=== PATIENT | male | born 1950 | race African-American/Black ===

== ENCOUNTER 2019-07-23 17:18 | Emergency (ER) | payer MEDICARE, MEDICAID ==
--- NOTE | 2019-07-23 18:27 | RAD ---
XR Abdomen 1 View/KUB History: G-tube placement Comparison: None. Findings: There is contrast instilled through an enteric tube in the stomach with contrast extending into the proximal small bowel. Impression: Satisfactory location of the gastrostomy tube.
== END 2019-07-23 19:28 ==
LOC: ERS 17:18
DX: Z43.1 Encounter for attention to gastrostomy (principal); F03.90 Unspecified dementia, unspecified severity, without behavioral disturbance, psychotic disturbance, mood disturbance, and anxiety; I10 Essential (primary) hypertension; F20.9 Schizophrenia, unspecified; Z87.01 Personal history of pneumonia (recurrent)
CPT/HCPCS: 43753; 74018; B4087

== ENCOUNTER 2019-08-09 02:28 | Inpatient (IN) | payer MEDICARE, MEDICAID ==
--- NOTE | 2019-08-09 03:47 | PDOC.FPRHP ---
- History of Present Illness Chief Complaint: fever and congestion History of Present Illness: 69-year-old male with a past medical history of hypertension, dementia, salivary secretion disturbance, pneumonia in April 2019, and retirement resident, presenting to the [place] emergency department for low oxygen saturation and fever found at the retirement of 101F. The patient wakes up when I walk into the room but does not respond or answer any questions. This is the patient's baseline mentation per next of kin. The patient was taken to [place] emergency Department had a oxygen saturation of 89% was started on 6 L facemask of oxygen, which then increased to 94%. Patients initial heart rate was 102 respiratory rate 24. Patient was transferred to [place] emergency Department. Where he was admitted for pneumonia.Patients heart rate is now 92 respiratory rate 17 is setting 100% on 4 L per facemask and his blood pressure is 137/79. Patient was given 500 mg of azithromycin, 1 g of Rocephin, and 2750 mL of normal saline. EKG sinus tach at 125 bpm. cxr: no acute cardiopulmonary findings. chest xray consistent with reading in April 2019 with bilateral perihilar interstitial prominent markings, likely bronchitis vs vascular congestion. - Allergies/Adverse Reactions Allergies Allergy/AdvReac Type Severity Reaction Status Date / Time No Known Drug Allergies Allergy Verified 08/09/19 05:59 - Home Medications Medication Instructions Recorded Confirmed Type Acetaminophen [Tylenol Elixir] 650 mg PO Q6HR PRN 08/09/19 08/09/19 History Loratadine [Loratadine Allergy] 10 mg PO DAILY PRN 08/09/19 08/09/19 History Magnesium Hydroxide [Milk of 60 ml PO DAILY PRN 08/09/19 08/09/19 History Magnesia] Multivitamin With Minerals 15 ml PO DAILY 08/09/19 08/09/19 History [Biosupp Liquid] guaiFENesin ER [Mucinex] 600 mg PO BID PRN 08/09/19 08/09/19 History guaiFENesin [Guaifenesin] 200 mg PO Q6HR 08/09/19 08/09/19 History - History PMHx: Dementia, HTN not on any antihypertensives, malignant constipation syndrome, disturbance of salivary secretions, Schizophrenia PSHx: unknown FHx: unknown Social: Lives at [facility]. Hx of etoh and cannabis abuse. next of kin Chelsy Escobar, medical decision maker. Confirmed DNR-DNI in hospital @ 0600 on 08/09 via phone conversation. - Review of Systems ROS unobtainable: due to mental status General: reports: fever/chills (per NH) Respiratory: reports: congestion (per NH) - Vital signs BP: 137/79 HR: 92 RR: 17 Tmax: 99.6 Pox: 100% on 4L facemask Wt: 79 kg - Physical Exam Constitutional: NAD -Constitutional: arousable, somnolent. Does not verbalize concerns or respond to questions verbally. Opens eyes spontaneously, moves extremities spontaneously. HEENT: normocephalic and atraumatic, conjunctiva clear, no scleral icterus, oropharynx clear -HEENT: pupils B pinpoint, sluggish reactivity. Dry mucus membranes. poor dentition Neck: supple, no LAD, no JVD Heart: RRR, normal S1/S2, no murmurs/rubs/gallops, pulses present, no edema -Lungs: Loud rhonchi, upper airway noise auscultated throughout all lung dunn. Abdomen: soft, non-tender, bowel sounds present, no masses/distention, no hernias -Abdomen: Peg tube in place Musculoskeletal: normal structure -Musculoskeletal: muscle mass decreased Skin: no rash/lesions, good turgor, capillary refill <2 seconds, no jaundice Heme/Lymphatic: no unusual bruising or bleeding, no purpura, no petechia FMR H&P: Results - Labs Lab results: Laboratory Tests 08/08/19 08/08/19 08/08/19 19:55 19:55 19:55 WBC 10.7 Hgb 12.8 L Hct 39.9 L MCV 83.1 Sodium 140 Potassium 3.6 Chloride 105 Carbon Dioxide 24 Anion Gap 15 BUN 19 Creatinine 1.05 Estimated GFR (MDRD) 85 Glucose 152 H Lactic Acid 2.0 AST 36 H ALT 55 Urine Blood Urine Nitrite Urine Bilirubin Urine Urobilinogen Ur Leukocyte Esterase Urine RBC Urine WBC Ur Squamous Epith Cells Urine Bacteria 08/08/19 20:24 WBC Hgb Hct MCV Sodium Potassium Chloride Carbon Dioxide Anion Gap BUN Creatinine Estimated GFR (MDRD) Glucose Lactic Acid AST ALT Urine Blood Trace A Urine Nitrite Positive A Urine Bilirubin Negative Urine Urobilinogen 2.0 A Ur Leukocyte Esterase Trace H Urine RBC 7-10 A Urine WBC 4-6 A Ur Squamous Epith Cells 0-3 Urine Bacteria 3+ A - EKG Interpretation EKG: sinus tach at 125 bpm - Radiology Interpretation Chest x-ray Status: image reviewed by me (no acute cardiopulmonary findings), report reviewed by me FMR H&P: A/P - Problem List (1) UTI (urinary tract infection) Current Visit: Yes Status: Acute (2) HTN (hypertension) Current Visit: Yes Status: Chronic Code(s): I10 - ESSENTIAL (PRIMARY) HYPERTENSION (3) Dementia Current Visit: Yes Status: Chronic Code(s): F03.90 - UNSPECIFIED DEMENTIA WITHOUT BEHAVIORAL DISTURBANCE (4) Constipation Current Visit: Yes Status: Chronic Code(s): K59.00 - CONSTIPATION, UNSPECIFIED (5) Schizophrenia Current Visit: Yes Status: Chronic Code(s): F20.9 - SCHIZOPHRENIA, UNSPECIFIED (6) History of CVA (cerebrovascular accident) Current Visit: Yes Status: Chronic Code(s): Z86.73 - PRSNL HX OF TIA (TIA), AND CEREB INFRC W/O RESID DEFICITS (7) Normocytic anemia Current Visit: Yes Status: Acute Code(s): D64.9 - ANEMIA, UNSPECIFIED - Plan 69 y/o male [facility] for treatment of sepsis 2/2 UTI. 1. Sepsis 2/2 UTI - UA: leuk est +, nitrite +, Bact 3+ - HR originally 125, 24 RR, O2 sat 89%, temp 101. Improved to HR 92, 17 RR, and 99% on 4 L facemask. - Lactic acid 2 - Given rocephin, azithromycin and 2750 mL NS in ED, for presumed pneumonia. - Continue LR @ 120 mL/hr - Levaquin 750 mg daily 2. UTI - UA: leuk est +, nitrite +, Bact 3+ - Changing antibiotic to Levaquin 750 mg daily - Antibiotic change because of sepsis and elderly male with increased probability of prostate penetration. 3. Acute Hypoxic Respiratory Failure, improved - O2 saturation improved with facemask O2 - CXR: no acute cardiopulmonary process - No evidence of pneumonia, no antibiotic therapy indicated at this time - Likely 2/2 bronchitis or increased respiratory secretions - RT to suction respiratory secretions - Consider scopolamine patch if symptoms do not alleviate - flu a/b negative 4. Hx of HTN - hold any antihypertension medications as pt is septic. - Pt has not beein on antihypertensives at [place] 5. Hx of Malignant Constipation Syndrome - Continue home Milk of Mag 6. Hx of Dementia - [place] resident at [facility] and rehab. 7. Peg tube in place - continue Jevity 1.5 - Dietary consult 8. Normocytic Anemia - Most likely anemia of chronic disease - Continue multivitamin Code status: DNR-DNI, Per Next of Kin: Chelsy Escobar Diet: tube feedings per [place] feds DVT ppx: Lovenox Dispo: Stable, admitted to in-pt tele for treatment and eval of sepsis 2/2 UTI. Hx stay anticipated >2 midnight FMR H&P: Upper Level - Pertinent history 69 y/o M PMHx Dementia and prior CVA presents as transfer from [place] ED. He was found at the [place] to be hypoxic and febrile so he was sent to the ED. At the ED he was found to have PNA and UTI and given azithromycin 500mg, rocephin 1 g, and 2L NS. He was found at [place] ED to have tmax 100.7, HR in 100s and RR in 20s. He was requiring O2 by ND. Upon my examination, pt able to be aroused, but non-communicative. Resting comfortably with facemask on chin. History obtained from [place] and ED records. - Pertinent findings BP: 137/79, Pulse: 94, Resp: 20, O2 sat: 100 on 4L Oxygen, Temp 100.3 PE: Gen - asleep, able to be aroused, NAD CV - RRR, no murmurs Lungs - significant upper airway sounds radiating in all lung dunn, worse on the L Abd - soft, NTTP Labs: WBC 10.7, Cr 1.05, Lactic Acid 2.0, UA with 3+bact, +nitrite, tr LE, tr blood CXR: no acute cardiopulmonary process - Plan Date/Time: 08/09/19 [id number] IZuleyka MD, PGY-3, have evaluated this patient and agree with findings/ plan as outlined by consultant internship resident. Pertinent changes/additions are listed here. 1. Sepsis 2/2 UTI Pt presents to the ED with a UA consistent with UTI as well as febrile, tachycardic, tachypneic. s/p rocephin, azithromycin, 2L NS. -BCx -UCx -Treat with rocephin, adjust pending urine cx results -Procal -LR @ 120 2. Hypoxia Pt hypoxic to 89% in [place] and started on O2. He has been 98-100% on 4L O2 at this ED. -Will attempt to wean O2 -Will have RT suction pt to see if this improves secretions -May have aspirated from increased secretions, but no CXR evidence of consolidation. Pt with PEG tube in place 3. Dementia Pt non-communicative with me. Will find out from NH what his baseline is. -Fall precautions -Continue PEG tube feeds VTE ppx: Lovenox Dispo: Admit to Tele LOS: Likely greater than 2 days Code status: DNR based on OOH DNR, attempting to contact next of kin/MPOA to discuss wishes in the hospital
[2019-08-09] MEDS ORDERED: Acetaminophen 325 MG TAB PO PRN (05:22)
[2019-08-09] MEDS ORDERED: Ondansetron PF 4 MG/2 ML Vial IVP PRN (05:22)
[2019-08-09 05:25] VITALS: BMI 26.5
[2019-08-09] MEDS: Lactated Ringer's 1,000 ML IV SCH ×2 (06:13→18:05)
[2019-08-09] MEDS ORDERED: Loratadine 10 MG TAB PO PRN (06:20)
[2019-08-09] MEDS ORDERED: Acetaminophen 650 MG/20.3 ML UDCUP PO PRN (06:20)
[2019-08-09] MEDS ORDERED: Milk Of Magnesia 30 ML UDCUP PO PRN (06:20)
[2019-08-09] MEDS: Multivitamin W/ Minerals 1 TAB PO SCH (10:06)
[2019-08-09] MEDS: Enoxaparin Sodium 40 MG/0.4 ML SYRINGE SC SCH (10:06)
[2019-08-09] MEDS ORDERED: Scopolamine 1.5 mg/72 hour Patch TD SCH (12:30)
[2019-08-09] MEDS: Diabetic Tussin 200 MG/10 ML UDCUP PO SCH ×2 (12:51→18:05)
--- NOTE | 2019-08-09 16:22 | HP ---
Please see the history and physical done by the residents, for which I agree. The patient is seen, evaluated, discussed, and examined by bedside with the residents. Please see the history and physical done by Dr. Darling Johnson. HISTORY OF PRESENT ILLNESS: A 69-year-old snf patient, who apparently has had severe dementia that he is not communicative and is fed through a PEG tube, who comes in with fever up to 101 and maybe some increased coughing and secretions in the chest. Initially, he was told he has pneumonia, but the x-ray looked pretty normal, and a urinalysis looked very dirty, likely UTIs, it is unclear if it is UTI or pneumonia or possibly both, so he is brought in. Initially, he was on Rocephin and Zithromax, now has been switched to Levaquin. ALLERGIES, HOME MEDICATIONS, PAST MEDICAL HISTORY, PAST SURGICAL HISTORY, FAMILY HISTORY, SOCIAL HISTORY, REVIEW OF SYSTEMS: All per Dr. Johnson's history and physical, for which I reviewed and agree with. PHYSICAL EXAMINATION: VITAL SIGNS: Afebrile. Vital signs are stable. Oxygen level is fine. EYES: Opens his eyes, but again is noncommunicative, does not answer any questions. We assume this is baseline, although there is no family around to tell us. ENT: Conjunctivae maybe is a little bit irritated, but no discharge. Looks like moist mucosa. CHEST: Coarse throughout. A little bit of wheezing with upper airway noises. HEART: Regular rate and rhythm. ABDOMEN: Benign. NEURO: Significant for just what seems to be some contractures. Hard to straighten his legs. IMAGING STUDIES: Chest x-ray looks pretty normal. LABORATORY DATA: Blood workup significant for normal white count of 10.7, hemoglobin 12.8, sugar a little bit high at 152. Urinalysis had only 4-6 white blood cells and 7-10 red blood cells. ASSESSMENT: 1. Febrile illness, unclear if this is urinary tract infection related or respiratory. 2. Severe dementia, unchanged. 3. Hypertension. 4. Schizophrenia history. 5. Normocytic anemia. 6. Elevated blood sugar. PLAN: Plan is to continue tube feeds, continue on Levaquin. His urine culture and blood cultures pending. We will watch his oxygen level and repeat a chest x-ray in the morning and just supportive care in the interim. The patient is a do not resuscitate. Job ID: [id number]
[2019-08-09] MEDS ORDERED: cefTRIAXone\\ROCEPHIN 1 GM in Sodium Chloride 0.9% 100 ML IVPB SCH (21:00)
[2019-08-09] MEDS: Terazosin HCl 1 MG CAP PO SCH (21:21)
[2019-08-10] MEDS: Diabetic Tussin 200 MG/10 ML UDCUP PO SCH ×4 (00:21→18:11)
--- NOTE | 2019-08-10 05:29 | PDOC.FM ---
- Subjective Subjective: No acute events overnight per nursing. Resting comfortably. A/O x0 at baseline. VSS. - Objective MAR Reviewed: Yes Vital Signs & Weight: Vital Signs (12 hours) Temp Pulse Resp BP Pulse Ox 08/10/19 04:00 98.5 F 65 18 116/56 L 97 08/09/19 21:00 99.0 F 61 16 105/57 L 100 Weight Weight 79.243 kg I&O: 08/08/19 08/09/19 08/10/19 06:59 06:59 06:59 Intake Total 30 870 Balance 30 870 Result Diagrams: 08/10/19 06:39 08/10/19 06:39 EKG Reviewed by me: Yes (NSR, no acute tele events) Phys Exam - Physical Examination Constitutional: NAD (resting comfortably, no increased WOB) HEENT: moist MMs increased salivary secretions Neck: supple Respiratory: no wheezing course BS BL, much upper airway noise as well Cardiovascular: RRR, no significant murmur, no rub Gastrointestinal: soft, non-tender, no distention, positive bowel sounds Musculoskeletal: no edema, pulses present Deviation from normal: A/O x0 Dx/Plan (1) Normocytic anemia Code(s): D64.9 - ANEMIA, UNSPECIFIED Status: Acute (2) UTI (urinary tract infection) Status: Acute (3) Dementia Code(s): F03.90 - UNSPECIFIED DEMENTIA WITHOUT BEHAVIORAL DISTURBANCE Status: Chronic (4) HTN (hypertension) Code(s): I10 - ESSENTIAL (PRIMARY) HYPERTENSION Status: Chronic - Plan Plan: 69 y/o male with h/o dementia A/O x0 admitted to tele inpt for treatment of sepsis 2/2 UTI. #Sepsis 2/2 UTI, stable - UA: leuk est +, nitrite +, Bact 3+ - HR originally 125, 24 RR, O2 sat 89%, temp 101. VSS on 3L NC satting >95%. - Lactic acid 2 - Given rocephin, azithromycin and 2750 mL NS in ED. Transitioned to Levaquin daily - Will await Cx and transition abx as appropriate - BCx NGTD #UTI - UA: leuk est +, nitrite +, Bact 3+. Awaiting UCx results - Levaquin 750 mg daily x2 - will transition to PO - Terazosin for urinary retention #Acute Hypoxic Respiratory Failure, improving - O2 saturation improved with facemask O2. Will wean O2. - CXR: no acute cardiopulmonary process - Likely 2/2 bronchitis or increased respiratory secretions - RT to suction respiratory secretions. Scopolamine patch. - flu a/b negative - Procal 0.34 -> 0.44. WBC 5.5. #Hx of HTN - BP stable, no home meds #Hx of Dementia - [place] resident at [facility] and rehab. #Peg tube dependent feeds - continue Jevity 1.5 - Dietary consult #Normocytic Anemia - likely anemia of chronic disease - Continue multivitamin Code status: DNR-DNI, Per Next of Kin: Chelsy Teixeirabran Diet: tube feedings per [place] feds IVF: SL DVT ppx: Lovenox Dispo: Stable, admitted to in-pt tele for treatment and eval of sepsis 2/2 UTI. VSS, clinical improved. Transfer to medical. Awaiting Cx results.
[2019-08-10] MEDS: Lactated Ringer's 1,000 ML IV SCH (05:53)
[2019-08-10 06:54] LABS: #Eosinphils 0.4 thou/uL (0.0-0.7); #Lymphocytes 2.1 thou/uL (1.20-3.40); #Monocytes 0.4 thou/uL (0.11-0.59); #Neutrophils 2.6 thou/uL (1.40-6.50); %Basophils 0.4 % (0.0-1.0); %Eosinophils 7.4 % (0.0-10.0); %Lymphocytes 37.3 % (21.0-51.0); %Neutrophils 46.9 % (42.0-75.0); Hemoglobin 10.6 g/dL (14.0-18.0); Mean Corpuscular Hemoglobin 27.1 pg (27.0-31.0); Mean Corpuscular Volume 87.4 fL (78.0-98.0); Mean Platelet Volume 10.4 fL (7.4-10.4); Platelet Count 138 thou/uL (130-400); RBC Distribution Width 14.5 % (11.5-14.5); White Blood Cell (WBC) Count 5.5 thou/uL (4.8-10.8)
[2019-08-10 07:16] LABS: Anion Gap 8 mmol/L (10-20); BUN (Urea Nitrogen) 14 mg/dL (8.4-25.7); Calc. Creatinine Clearance 99 mL/min (70-130); Calcium 9.1 mg/dL (7.8-10.44); Carbon Dioxide 28 mmol/L (23-31); Chloride 107 mmol/L (98-107); Estimated GFR-MDRD Greater than 90; Glucose 118 mg/dL (80-115); Potassium 4.2 mmol/L (3.5-5.1); Sodium 139 mmol/L (136-145)
[2019-08-10] MEDS: Multivitamin W/ Minerals 1 TAB PO SCH (08:20)
[2019-08-10] MEDS: Enoxaparin Sodium 40 MG/0.4 ML SYRINGE SC SCH (08:20)
[2019-08-10] MEDS ORDERED: Tamsulosin HCl 0.4 MG CAP PO SCH (09:00)
--- NOTE | 2019-08-10 12:33 | PRG ---
DATE OF SERVICE: 08/10/2019 Mr. Escobar is an unfortunate 69-year-old black male patient, who was found at an outlying ER to have a low oxygen saturation and fever at the long-term 101 degrees. Chest x-ray subsequently showed possible interstitial pneumonia and he was transferred to our institution for higher level of care. He is currently on antibiotics and O2 with improvement in his O2 saturation. He also has a history of dementia, possibly on the basis of Alzheimer's and vascular dementia. He is therefore extremely difficult to obtain any adequate history from. We will continue with our current management. Job ID: [id number]
[2019-08-10] MEDS: Terazosin HCl 1 MG CAP PO SCH (21:58)
[2019-08-11] MEDS: Diabetic Tussin 200 MG/10 ML UDCUP PO SCH ×2 (00:13→05:48)
--- NOTE | 2019-08-11 07:25 | PDOC.FM ---
- Subjective Subjective: No acute events overnight. Baseline mentation. No increased WOB. Satting well on RA. Stable and ready for transfer back to long-term care facility. - Objective MAR Reviewed: Yes Vital Signs & Weight: Vital Signs (12 hours) Temp Pulse Resp BP Pulse Ox 08/11/19 04:00 99.7 F H 71 20 137/86 100 08/10/19 20:00 98.2 F 67 20 112/61 100 Weight Admit Weight 79.243 kg Weight 79.243 kg I&O: 08/10/19 08/11/19 08/12/19 06:59 06:59 06:59 Intake Total 870 180 Balance 870 180 Result Diagrams: 08/10/19 06:39 08/10/19 06:39 Phys Exam - Physical Examination Constitutional: NAD (no increased WOB, A/O x0 at baseline, opens eyes to verbal stimulus) HEENT: moist MMs (copious secretions) Neck: supple Respiratory: no wheezing course BS BL bases, no crackles, improved from previous exam Cardiovascular: RRR, no significant murmur, no rub Gastrointestinal: soft, no distention, positive bowel sounds Musculoskeletal: no edema Deviation from normal: A/O x 0, at baseline Dx/Plan (1) Normocytic anemia Code(s): D64.9 - ANEMIA, UNSPECIFIED Status: Acute (2) UTI (urinary tract infection) Status: Acute (3) Dementia Code(s): F03.90 - UNSPECIFIED DEMENTIA WITHOUT BEHAVIORAL DISTURBANCE Status: Chronic (4) HTN (hypertension) Code(s): I10 - ESSENTIAL (PRIMARY) HYPERTENSION Status: Chronic - Plan Plan: 69 y/o male with h/o dementia A/O x0 admitted for treatment of sepsis 2/2 UTI. #Sepsis 2/2 UTI, stable - UA: leuk est +, nitrite +, Bact 3+ - HR originally 125, 24 RR, O2 sat 89%, temp 101. VSS now on RA satting 100% - Given rocephin, azithromycin and 2750 mL NS in ED. Transitioned to Levaquin daily - UCx E. Coli, susceptibilities pending. Will cont levaquin 750mg daily for total of 7 days. BCx NGTD - transferred to medical from [facility] yesterday, no acute events overnight - Pt stable and appears at baseline, ready for transfer back to [facility] #UTI - UA: leuk est +, nitrite +, Bact 3+. Awaiting UCx results - Levaquin 750 mg daily x3 - will transition to PO - Terazosin for urinary retention #Acute Hypoxic Respiratory Failure, resolved - weaned to room air, satting 100% - CXR: no acute cardiopulmonary process - Likely 2/2 bronchitis or increased respiratory secretions - RT to suction respiratory secretions. Scopolamine patch. - flu a/b negative - Procal 0.34 -> 0.44. WBC 5.5. #Hx of HTN - BP stable, no home meds #Hx of Dementia - [place] resident at [facility] and rehab. #Peg tube dependent feeds - continue Jevity 1.5 - Dietary consult #Normocytic Anemia - likely anemia of chronic disease - Continue multivitamin Code status: DNR-DNI, Per Next of Kin: Chelsy Teixeirabran Diet: tube feedings per [place] feds IVF: SL DVT ppx: Lovenox Dispo: Stable, admitted for treatment and eval of sepsis 2/2 UTI. VSS, clinical improved. UCx E. coli, susceptibilities pending. Medically stable and ready for discharge back to [facility].
[2019-08-11] MEDS: Multivitamin W/ Minerals 1 TAB PO SCH (08:01)
[2019-08-11] MEDS: Enoxaparin Sodium 40 MG/0.4 ML SYRINGE SC SCH (08:01)
--- NOTE | 2019-08-11 10:59 | PRG ---
DATE OF SERVICE: 08/11/2019 Mr. Escobar is receiving good treatment for his urinary tract infection and sepsis. His hypoxia has resolved since the treatment of his sepsis. He will be discharged back to the long-term facility today. Job ID: [id number]
[2019-08-11 11:48] VITALS: BP 108/71; TEMP 98.2
--- NOTE | 2019-08-11 19:43 | DIS ---
DATE OF ADMISSION: 08/09/2019 DATE OF DISCHARGE: 08/11/2019 RESIDENT: Jerman Rodriguez MD ADMITTING ATTENDING: Unruly Granger MD. DISCHARGE ATTENDING: Miguel Colvin MD CONSULTS: None. PROCEDURES: Chest x-ray on 08/08/2019, demonstrating no acute cardiopulmonary process. PRIMARY DIAGNOSES: 1. Sepsis secondary to urinary tract infection. 2. Urinary tract infection. 3. Acute hypoxic respiratory failure. SECONDARY DIAGNOSES: 1. Hypertension. 2. Dementia. 3. PEG tube dependent feeds. 4. Normocytic normochromic anemia. DISCHARGE MEDICATIONS: 1. Tylenol 650 mg p.o. q.6 hours p.r.n. 2. Mucinex 600 mg p.o. b.i.d. p.r.n. 3. Milk of magnesia 60 mL p.o. daily p.r.n. 4. Loratadine 10 mg p.o. daily p.r.n. 5. Guaifenesin 200 mg p.o. q.6 hours. 6. Multivitamin 15 mL p.o. daily. 7. Levaquin 750 mg per tube at 0600 daily x5 days. 8. Scopolamine patch 1.5 mg transdermally q.3 days p.r.n. secretions. DISCONTINUED MEDICATIONS: None. HISTORY OF PRESENT ILLNESS AND HOSPITAL COURSE: The patient is a 69-year-old male with past medical history of hypertension, dementia, salivary secretion disturbance, and intermediate resident, who was A and O x0 at baseline, presented to the outside emergency department for low oxygen saturation with fever found at the intermediate to be 101 Fahrenheit. The patient wakes up when I walked into the room, but does not respond to any questions, this is baseline per next of kin. In the [facility], he had O2 saturation of 89%, was started on 6 L face mask oxygen, was increased the patient's O2 sats to 94%. The patient initially had a respiratory rate of 24 and heart rate of 102. The patient was then transferred to [facility] Emergency Department for further evaluation and management and the Family Medicine team was called for admission. In the ED, his heart rate decreased to 92, respiratory rate 17, he was saturating 100% on 4 L. His blood pressure was stable, 137/79. He was given 500 mg of azithromycin, 1 g of Rocephin, 3 L normal saline bolus. EKG showed sinus tachycardia, 125. Chest x-ray showed no acute cardiopulmonary findings and was similar to a previous chest x-ray in April of 2019. The patient was admitted to telemetry for sepsis secondary to UTI. Initial labs were significant for a white blood cell count of 10.7, hemoglobin 12.8, platelets 138. Electrolytes were within normal limits. GFR was 85. The patient had a lactic acid of 2. UA was dirty with 3+ bacteria, 4 to 6 wbc's and trace leukocyte esterase. Urine culture was obtained. The patient was continued on Levaquin daily. He was started on maintenance IV fluids. Overnight, the patient did very well and continued to improve clinically. He continued to have increased secretions and bilateral coarse breath sounds and thus was given a scopolamine patch to aid with secretions as well as started on terazosin for urinary retention. The patient continued to urinate well. His tube feeds were continued as per intermediate. IV fluids were then discontinued and the patient was transferred to the medical floor. Throughout the day and overnight, the patient continued to improve clinically. His O2 requirement was continued to wean down to 1 L by the end of the first day of admission and overnight was weaned to room air saturating 100%. The patient's lab work remained unremarkable. Vital signs stable. He was then ready for discharge back to the [facility]. Dr. Diaz was notified of the patient's discharge and plan of care. DISPOSITION: Stable. DISCHARGE INSTRUCTIONS: 1. Location: [facility]. 2. Diet: Jevity tube feeds at 60 mL/hour, x20 hours per day. 3. Activity, as tolerated. 4. Followup: The patient is to follow up with primary care physician within one week of discharge. Job ID: [id number]
== END 2019-08-11 13:08 | DRG 871 ==
LOC: ERS 02:28 → 2NO 03:10 → T4-A 08-10 17:08
PROVIDERS: ADMIT Family Medicine; ATTEND Family Medicine
DX: A41.9 Sepsis, unspecified organism (principal); J96.01 Acute respiratory failure with hypoxia; N39.0 Urinary tract infection, site not specified; I10 Essential (primary) hypertension; Z66 Do not resuscitate; F03.90 Unspecified dementia, unspecified severity, without behavioral disturbance, psychotic disturbance, mood disturbance, and anxiety; F20.9 Schizophrenia, unspecified; K59.00 Constipation, unspecified; Z93.1 Gastrostomy status; Z86.73 Personal history of transient ischemic attack (TIA), and cerebral infarction without residual deficits; D63.8 Anemia in other chronic diseases classified elsewhere
CPT/HCPCS: 36415; 80048; 83880; 84145; 85025; 87804; 94640; 99285; J1650; J1956; J7620

== ENCOUNTER 2019-10-17 17:02 | Emergency (ER) | payer MEDICARE, MEDICAID ==
[~2019-10-17 17:02] MED LIST: GASTROGRAFIN 30 ML BOT ONE
--- NOTE | 2019-10-17 18:04 | RAD ---
KUB: 10/17/19 HISTORY: Gastrostomy tube check. Contrast is injected into the gastrostomy tube which confirms the position of the tube within the sto mach. IMPRESSION: Gastrostomy tube in stomach. POS: CLIVE
== END 2019-10-17 19:30 ==
LOC: ERS 17:02
DX: Z43.1 Encounter for attention to gastrostomy (principal); I10 Essential (primary) hypertension; F03.90 Unspecified dementia, unspecified severity, without behavioral disturbance, psychotic disturbance, mood disturbance, and anxiety; F20.9 Schizophrenia, unspecified; Z79.899 Other long term (current) drug therapy
CPT/HCPCS: 43762; 74018; B4087; Q9963

== ENCOUNTER 2020-03-02 15:16 | Inpatient (IN) | payer MEDICARE, MEDICAID, OTHER ==
[2020-03-02] MEDS ORDERED: Insulin Regular 100 units/100 ml in NS IVPB SCH (15:45)
--- NOTE | 2020-03-02 16:10 | PDOC.FPRHP ---
- History of Present Illness Chief Complaint: fever, congestion History of Present Illness: 69 yo AAM, [facility] transferred from [facility] for DKA and Sepsis 2/ 2 pneumonia. Patient was unresponsive in room and so history was gathered primarily from PCP and [facility]itentiary. At baseline patient is A&O x3 but responsive to pain. Has dementia, schizophrenia with PEG tube. [facility] nurse stated he was less responsive from his baseline today and had fever of 104F that came down only to 101F after tylenol in which he was esnt to the ER. Between [facility] and our ER he was tachycardic, febrile and given 2g Rocephin and 3.375g zosyn. Also found to be hypernatremic, hyperglycemic with glucose 1000s and was given 3L and started on insulin gtt. ED Course: Zosyn, rocephin, insulin drip, 2L NS - Allergies/Adverse Reactions Allergies Allergy/AdvReac Type Severity Reaction Status Date / Time No Known Drug Allergies Allergy Verified 08/09/19 05:59 - Home Medications Medication Instructions Recorded Confirmed Type Acetaminophen [Tylenol Elixir] 650 mg PO Q6HR PRN 08/09/19 03/02/20 History Loratadine [Loratadine Allergy] 10 mg PO DAILY PRN 08/09/19 03/02/20 History Magnesium Hydroxide [Milk of 60 ml PO DAILY PRN 08/09/19 03/02/20 History Magnesia] Multivitamin With Minerals 15 ml PO DAILY 08/09/19 03/02/20 History [Biosupp Liquid] guaiFENesin ER [Mucinex] 600 mg PO BID PRN 08/09/19 03/02/20 History guaiFENesin [Guaifenesin] 200 mg PO Q6HR 08/09/19 03/02/20 History Scopolamine [Transderm Scop] 1.5 mg TD Q3D PRN #5 patch 08/11/19 03/02/20 Rx - History PMHx:Dementia (AOx0 at baseline), Schizophrenia, HTN, CVA, Constipation, PEG tube, PSHx: PEG tube FHx: unobtainable Scial: [facility], history of alcohol and THC abuse - Review of Systems ROS unobtainable: due to mental status - Vital signs BP: [112/86] HR: [141] RR: [32] Tmax: [99.5] Pox: [100]% on [RA] Wt: [90kg] - Physical Exam Constitutional: NAD -Constitutional: Responds to pain stimuli [id number]: GCS =7 but maintaining airway and 100% O2 saturation HEENT: normocephalic and atraumatic -HEENT: dry mucosal membranes poor dentition Neck: trachea midline -Heart: tachycardic Lungs: CTAB, no respiratory distress Abdomen: soft, non-tender, bowel sounds present -Abdomen: PEG tube in place -Neurological: unable to perform FMR H&P: Results - Labs Result Diagrams: 03/02/20 16:14 - EKG Interpretation EKG: Tachycardia rate of 144, QTc 545 - Radiology Interpretation Chest x-ray Status: image reviewed by me, report reviewed by me Additional comment: No focal consolidation or other acute cardiopulmonary processes FMR H&P: A/P - Problem List (1) Hyperglycemia Current Visit: Yes Status: Acute Code(s): R73.9 - HYPERGLYCEMIA, UNSPECIFIED (2) Lactic acidosis Current Visit: Yes Status: Acute Code(s): E87.2 - ACIDOSIS (3) Prolonged QT interval Current Visit: Yes Status: Acute Code(s): R94.31 - ABNORMAL ELECTROCARDIOGRAM [ECG] [EKG] (4) Hypernatremia Current Visit: Yes Status: Acute Code(s): E87.0 - HYPEROSMOLALITY AND HYPERNATREMIA (5) ROSI (acute kidney injury) Current Visit: Yes Status: Acute Code(s): N17.9 - ACUTE KIDNEY FAILURE, UNSPECIFIED (6) High anion gap metabolic acidosis Current Visit: Yes Status: Acute Code(s): E87.2 - ACIDOSIS (7) Sepsis Current Visit: Yes Status: Acute Code(s): A41.9 - SEPSIS, UNSPECIFIED ORGANISM (8) Normocytic anemia Current Visit: No Status: Acute Code(s): D64.9 - ANEMIA, UNSPECIFIED (9) UTI (urinary tract infection) Current Visit: No Status: Acute (10) Constipation Current Visit: No Status: Chronic Code(s): K59.00 - CONSTIPATION, UNSPECIFIED (11) Dementia Current Visit: No Status: Chronic Code(s): F03.90 - UNSPECIFIED DEMENTIA WITHOUT BEHAVIORAL DISTURBANCE (12) HTN (hypertension) Current Visit: No Status: Chronic Code(s): I10 - ESSENTIAL (PRIMARY) HYPERTENSION (13) History of CVA (cerebrovascular accident) Current Visit: No Status: Chronic Code(s): Z86.73 - PRSNL HX OF TIA (TIA), AND CEREB INFRC W/O RESID DEFICITS (14) Schizophrenia Current Visit: No Status: Chronic Code(s): F20.9 - SCHIZOPHRENIA, UNSPECIFIED - Plan 69 yo M with Alzheimer's dementia, chronic encephalopathy, PEG tube here for HHS and sepsis 2/2 PNA vs. COVID19 #. AG acidsosis 2/2 HHS -Unable to calculate gap due to component of pseudohypernatremia from hyperglycemia -Hyperglycemia, +serum ketones, HCO3 = 22, gap unreliable since sodium very high. = Given 10 units insulin, started insulin gtt- continue DKA protocol with electrolyte replacement -No former dx of DM2, check A1c -BMP q2 hours until Na corrects and gap can be more accurately calculated -A1c pending, but if new onset diabetes will likely need to be started on insulin #. Sepsis 2/2 PNA vs. COV19 vs. other source -febrile, tachycardic, tachypneic -s/p Rocephin & zosyn -Will check procal -CXR no focal consolidation- repeat in AM -UA negative -Continue abx pending possible BCx #. Hypernatremia -156-> 160, however correcting for hyperglycemia, it is 170 -> 169 (after 3L fluids) -Continue isotonic fluids with DKA protocol -Goal 8-10mEq in 24 hours -If correcting too quickly then will slow down rate of isotonic fluids. If unimproved with BMPs can consider hypotonic fluid #ROSI -Cr 2.05, 0.81 in Jul 2019 -Likely prerenal, s/p 3L, will get fluids with DKA protocol -Repeat BMP #COV19 PUI -Precautions pending test #. Lactic acidosis -3.5, fluids, repeat -Likely from dehydration #. Prolonged QTc -545ms, repeat EKG in AM -avoid QTc prolonging agents #. Schizophrenia -No home meds, after discussing with PCP he is not any any of these meds due to quality of life #. Dementia with PEG tube feeds -Nutrition consulted, continue tube feeds Code: Full until can verify OOH DNR PCP: Joe Admit: IMCU/inpatient Dvt ppx: Lovenox Abx: Rocephin & Zosyn Daughter: Chelsy Escobar [phone] (Attempted to call, no answer) FMR H&P: Upper Level - Plan Date/Time: 03/02/20 1610 I, [], have evaluated this patient and agree with findings/plan as outlined by risk management intern resident. Pertinent changes/additions are listed here.
[2020-03-02 16:53] LABS: Bilirubin Negative (Negative); Blood, Urine Trace (Negative); Clarity Clear (Clear); Glucose, Urine (Dipstick) Greater than 1000 mg/dL (Negative); Leukocyte Negative Leu/uL (Negative); Mucous/LPF Rare LPF (<2+); Nitrite Negative (Negative); Protein, Urine (Dipstick) Negative (Neg-Trace); RBC/HPF 0-3 HPF (0-3); Squamous Epithelial None Seen HPF (0-3); Urobilinogen Normal mg/dL (Less than 2); WBC/HPF 0-3 HPF (0-3)
[2020-03-02 16:54] LABS: Anion Gap 18 mmol/L (10-20); BUN (Urea Nitrogen) 42 mg/dL (8.4-25.7); Calc. Creatinine Clearance 0 mL/min (70-130); Calcium 9.8 mg/dL (7.8-10.44); Carbon Dioxide 21 mmol/L (23-31); Chloride 125 mmol/L (98-107); Estimated GFR-MDRD 39; Potassium 3.8 mmol/L (3.5-5.1); Sodium 160 mmol/L (136-145)
[2020-03-02 17:00] LABS: Glucose 678 mg/dL (80-115); Lactic Acid 4.8 mmol/L (0.5-2.2)
[2020-03-02 17:03] LABS: Bacteria/HPF Rare-Few HPF (None Seen)
[2020-03-02] MEDS ORDERED: NS 0.9% w/ 20 MEQ KCL 1,000 ML/1,000 ML BAG IV PRN ×3 (17:28→20:17)
[2020-03-02 18:48] LABS: Hemoglobin A1c 9.9 % (4.0-6.0)
[2020-03-02 19:02] LABS: Phosphorus 1.9 mg/dL (2.3-4.7)
[2020-03-02 19:46] LABS: Anion Gap 16 mmol/L (10-20); BUN (Urea Nitrogen) 39 mg/dL (8.4-25.7); Calc. Creatinine Clearance 0 mL/min (70-130); Calcium 10.1 mg/dL (7.8-10.44); Carbon Dioxide 22 mmol/L (23-31); Chloride 127 mmol/L (98-107); Estimated GFR-MDRD 44; Glucose 494 mg/dL (80-115); Potassium 3.6 mmol/L (3.5-5.1); Sodium 161 mmol/L (136-145)
[2020-03-02] MEDS ORDERED: Sodium Chloride 0.9% 1,000 ML IV PRN ×8 (20:17→20:31)
[2020-03-02] MEDS ORDERED: Dextrose 5% in Water 1,000 ML IV PRN ×2 (20:17→20:46)
[2020-03-02] MEDS ORDERED: D5 1/2 NS w/20 mEq KCL 1,000 ML IV PRN ×2 (20:17→20:31)
[2020-03-02] MEDS ORDERED: Dextrose 50% Abboject 50 ML SYRINGE SLOW IVP PRN ×2 (20:17→20:46)
[2020-03-02] MEDS ORDERED: Dextrose 5 %-0.45 % NaCl 1,000 ML IV PRN ×2 (20:17→20:31)
[2020-03-02] MEDS ORDERED: CCU ELECTROLYTE REPLACEMENT PROTOCOL FS PRN ×2 (20:20→20:42)
[2020-03-02] MEDS ORDERED: Potassium Chloride 40 MEQ in Premix Bag 1 BAG IVPB PRN ×2 (20:20→20:42)
[2020-03-02] MEDS ORDERED: PHOS-NAK 1 PKT PACK PO PRN ×4 (20:20→20:42)
[2020-03-02] MEDS ORDERED: Potassium Phosphate 15 MMOL in Sodium Chloride 0.9% 250 ML 250 ML IV PRN ×2 (20:20→20:42)
[2020-03-02] MEDS ORDERED: Potassium Phosphate 9 MMOL in Sodium Chloride 0.9% 100 ML IVPB PRN ×2 (20:20→20:42)
[2020-03-02] MEDS ORDERED: Potassium Phosphate 12 MMOL in Sodium Chloride 0.9% 250 ML 250 ML IV PRN ×2 (20:20→20:42)
[2020-03-02] MEDS ORDERED: Magnesium Oxide 400 MG TAB PO PRN ×4 (20:20→20:42)
[2020-03-02] MEDS ORDERED: Potassium Chloride 40 MEQ in Sodium Chloride 0.9% 250 ML 250 ML IVPB PRN ×2 (20:20→20:42)
[2020-03-02] MEDS ORDERED: Potassium Chloride 20 MEQ TAB PO PRN ×2 (20:20→20:42)
[2020-03-02] MEDS ORDERED: Magnesium 2 GM/50 ML 2 GM in Premix Bag 1 BAG IVPB PRN ×2 (20:20→20:42)
[2020-03-02] MEDS ORDERED: ADD ELECTROLYTE REPLACEMENT SET TO PROFILE FS SCH (20:30)
[2020-03-02] MEDS ORDERED: Acetaminophen 325 MG TAB PO PRN (20:31)
[2020-03-02] MEDS ORDERED: CCU Electrolyte Replacement 1 EACH IVPB ONE (20:31)
[2020-03-02] MEDS ORDERED: NS 0.9% w/ 20 MEQ KCL 1,000 ML IV PRN ×2 (20:31)
[2020-03-02] MEDS ORDERED: HUMULIN R 100 UNITS in Sodium Chloride 0.9% 100 ML IVPB SCH (20:31)
[2020-03-02 21:54] LABS: Lactic Acid 5.6 mmol/L (0.5-2.2)
[2020-03-02 22:08] LABS: Anion Gap 17 mmol/L (10-20); BUN (Urea Nitrogen) 36 mg/dL (8.4-25.7); Calc. Creatinine Clearance 0 mL/min (70-130); Calcium 10.5 mg/dL (7.8-10.44); Carbon Dioxide 23 mmol/L (23-31); Chloride 128 mmol/L (98-107); Estimated GFR-MDRD 46; Glucose 351 mg/dL (80-115); Potassium 3.4 mmol/L (3.5-5.1); Sodium 165 mmol/L (136-145)
[2020-03-02 22:36] VITALS: BMI 26.9
[2020-03-02] MEDS: Piperacillin/Tazobactam 2.25 GM in Sodium Chloride 0.9% 100 ML IVPB SCH (23:01)
[2020-03-02] MEDS: 1/2 NS w/KCL 20 mEq 1,000 ML IV SCH (23:02)
[2020-03-03 01:18] LABS: Anion Gap 19 mmol/L (10-20); BUN (Urea Nitrogen) 32 mg/dL (8.4-25.7); Calc. Creatinine Clearance 60 mL/min (70-130); Calcium 10.4 mg/dL (7.8-10.44); Carbon Dioxide 21 mmol/L (23-31); Chloride 129 mmol/L (98-107); Estimated GFR-MDRD 55; Glucose 260 mg/dL (80-115); Potassium 3.5 mmol/L (3.5-5.1); Sodium 165 mmol/L (136-145)
[2020-03-03 04:12] LABS: Band 1 % (5-11); Hemoglobin 15.3 g/dL (14.0-18.0); Lymphocytes 24 % (21-51); MDiff Complete? YES; Mean Corpuscular HGB CONC 30.3 g/dL (32.0-36.0); Mean Platelet Volume 11.6 fL (7.4-10.4); Monocytes 2 % (0-10); Neutrophil 73 % (42-75); Platelet Count 195 thou/uL (130-400); Platelet Morphology Comment Appears Adequate; RBC Distribution Width 15.3 % (11.5-14.5); RBC Morphology Normal; Red Blood Cell (RBC) Count 5.88 mill/uL (4.70-6.10); White Blood Cell (WBC) Count 14.1 thou/uL (4.8-10.8)
[2020-03-03 04:16] LABS: Lactic Acid 4.5 mmol/L (0.5-2.2)
[2020-03-03 04:17] LABS: Anion Gap 15 mmol/L (10-20); BUN (Urea Nitrogen) 30 mg/dL (8.4-25.7); Calc. Creatinine Clearance 65 mL/min (70-130); Calcium 10.6 mg/dL (7.8-10.44); Carbon Dioxide 23 mmol/L (23-31); Chloride 132 mmol/L (98-107); Estimated GFR-MDRD 61; Glucose 148 mg/dL (80-115); Potassium 3.5 mmol/L (3.5-5.1); Sodium 166 mmol/L (136-145)
[2020-03-03] MEDS: Piperacillin/Tazobactam 2.25 GM in Sodium Chloride 0.9% 100 ML IVPB SCH ×2 (06:13→10:46)
[2020-03-03 07:25] LABS: Anion Gap 17 mmol/L (10-20); BUN (Urea Nitrogen) 28 mg/dL (8.4-25.7); Calc. Creatinine Clearance 70 mL/min (70-130); Calcium 10.1 mg/dL (7.8-10.44); Carbon Dioxide 21 mmol/L (23-31); Chloride 133 mmol/L (98-107); Estimated GFR-MDRD 67; Glucose 122 mg/dL (80-115); Potassium 3.6 mmol/L (3.5-5.1); Sodium 167 mmol/L (136-145)
--- NOTE | 2020-03-03 07:37 | PDOC.FM ---
- Subjective Subjective: NAEO. Doing well, no reports per nursing. - Objective Vital Signs & Weight: Vital Signs (12 hours) Temp Pulse Ox 03/03/20 04:00 99.2 F 03/03/20 00:00 99.2 F 03/02/20 21:00 98.9 F 03/02/20 20:00 100 Weight Weight 90 kg Most Recent Monitor Data Heart Rate from ECG 118 NIBP 116/87 NIBP BP-Mean 96 Respiration from ECG 23 SpO2 100 I&O: 03/02/20 03/03/20 03/04/20 06:59 06:59 06:59 Intake Total 1149.8 Output Total 865 Balance 284.8 Result Diagrams: 03/03/20 03:40 03/03/20 08:58 Phys Exam - Physical Examination Constitutional: NAD HEENT: PERRLA, moist MMs Respiratory: no wheezing, clear to auscultation bilateral tachycardic Gastrointestinal: soft PEG tube present Musculoskeletal: no edema nonverbal, but responsive to verbal commands Deviation from normal: flat affect Dx/Plan (1) Hyperglycemia Code(s): R73.9 - HYPERGLYCEMIA, UNSPECIFIED Status: Acute (2) Lactic acidosis Code(s): E87.2 - ACIDOSIS Status: Acute (3) Prolonged QT interval Code(s): R94.31 - ABNORMAL ELECTROCARDIOGRAM [ECG] [EKG] Status: Acute (4) Hypernatremia Code(s): E87.0 - HYPEROSMOLALITY AND HYPERNATREMIA Status: Acute (5) ROSI (acute kidney injury) Code(s): N17.9 - ACUTE KIDNEY FAILURE, UNSPECIFIED Status: Acute (6) High anion gap metabolic acidosis Code(s): E87.2 - ACIDOSIS Status: Acute (7) Sepsis Code(s): A41.9 - SEPSIS, UNSPECIFIED ORGANISM Status: Acute (8) Normocytic anemia Code(s): D64.9 - ANEMIA, UNSPECIFIED Status: Acute (9) UTI (urinary tract infection) Status: Acute (10) Constipation Code(s): K59.00 - CONSTIPATION, UNSPECIFIED Status: Chronic (11) Dementia Code(s): F03.90 - UNSPECIFIED DEMENTIA WITHOUT BEHAVIORAL DISTURBANCE Status: Chronic (12) HTN (hypertension) Code(s): I10 - ESSENTIAL (PRIMARY) HYPERTENSION Status: Chronic (13) History of CVA (cerebrovascular accident) Code(s): Z86.73 - PRSNL HX OF TIA (TIA), AND CEREB INFRC W/O RESID DEFICITS Status: Chronic (14) Schizophrenia Code(s): F20.9 - SCHIZOPHRENIA, UNSPECIFIED Status: Chronic - Plan Plan: 69 yo M with Alzheimer's dementia, chronic encephalopathy, PEG tube here for HHS and sepsis 2/2 PNA vs. COVID19 #. 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 Sepsis 2/2 PNA vs. COV19 vs. other source -febrile, tachycardic, tachypneic -s/p Rocephin & zosyn -CXR no focal consolidation- repeat in AM -UA negative -Continue abx pending BCx #. Hypernatremia -156-> 160, however correcting for hyperglycemia, it is 170 -> 169 > 167 - Continue D5 1/2 NS, will discuss switch to 1/4 NS vs. D5W - start free water flushes - Goal 8-10mEq in 24 hours -If correcting too quickly then will slow down rate of fluids -BMP q2 hours #ROSI - IMproving -Likely prerenal,continue fluid, trend #COV19 PUI -Precautions pending test #. Lactic acidosis -3.5, fluids, repeat -Likely from dehydration #. Prolonged QTc -545ms -avoid QT prolonging agents -cardiac monitoring -repeat EKG this AM #. Schizophrenia -No home meds, after discussing with PCP he is not any any of these meds due to quality of life #. Dementia with PEG tube feeds -Nutrition consulted, continue tube feeds Code: DNR PCP: Joe Admit: IMCU/inpatient Dvt ppx: Lovenox Abx: Rocephin & Zosyn Daughter: Chelsy Escobar [phone] (Attempted to call, no answer)-will try again today Addendum - Attending - Attending Attestation Date/Time: 03/03/20 0990 I personally evaluated the patient and discussed the management with Dr. Ruth I agree with the History, Examination, Assessment and Plan documented above with any addition or exceptions noted below. 69 yo M with Hypernatremia, Alzheimer's dementia, chronic encephalopathy, PEG tube here for HHS and sepsis 2/2 PNA vs. COVID. COVID pending. Free water deficit 8L, on 1/2NS at 120ml/hr. Will switch to 1/4NS and add free water flushes. Continue antibiotics.
--- NOTE | 2020-03-03 07:49 | RAD ---
EXAM: CHEST ONE VIEW HISTORY: CCU follow-up evaluation. COMPARISON: 03/02/2020 FINDINGS: Mild increase in interstitial opacities are seen at the medial left lung base with an associated line ar opacities. This linear opacity may related to mild atelectasis. However, interstitial densities are worrisome for developing pneumonitis. No consolidation or definite pleural fluid is seen. Right l [place] is clear. Cardiac silhouette and pulmonary vasculature are within normal limits. Residual contrast is seen within the region of the splenic flexure. No other interval change. IMPRESSION: Increased interstitial opacities at the medial left lung base which could be related to developing ar ea of pneumonitis. Follow-up evaluation is recommended.
[2020-03-03] MEDS ORDERED: guaiFENesin ER 600 MG TAB PO PRN (09:00)
[2020-03-03] MEDS: Enoxaparin Sodium 40 MG/0.4 ML SYRINGE SC SCH (09:29)
[2020-03-03 09:36] LABS: Lactic Acid 4.6 mmol/L (0.5-2.2)
[2020-03-03 09:51] LABS: Anion Gap 20 mmol/L (10-20); BUN (Urea Nitrogen) 27 mg/dL (8.4-25.7); Calc. Creatinine Clearance 69 mL/min (70-130); Calcium 9.8 mg/dL (7.8-10.44); Carbon Dioxide 19 mmol/L (23-31); Chloride 133 mmol/L (98-107); Estimated GFR-MDRD 66; Glucose 155 mg/dL (80-115); Potassium 3.8 mmol/L (3.5-5.1); Sodium 168 mmol/L (136-145)
[2020-03-03] MEDS ORDERED: STERILE WATER IV SCH (10:30)
[2020-03-03] MEDS ORDERED: ADMIXTURE FEE IV SCH (10:30)
[2020-03-03] MEDS ORDERED: SODIUM CHLORIDE IV SCH (10:30)
[2020-03-03] MEDS: 1/2 NS w/KCL 20 mEq 1,000 ML IV SCH ×2 (10:39→16:30)
[2020-03-03] MEDS: Insulin Glargine 18 UNITS in Pre-Filled Syringe 1 EACH SC SCH (10:39)
[2020-03-03] MEDS ORDERED: cefTRIAXone\\ROCEPHIN 1 GM in Sodium Chloride 0.9% 100 ML IVPB SCH (12:00)
[2020-03-03 12:45] LABS: Anion Gap 15 mmol/L (10-20); BUN (Urea Nitrogen) 27 mg/dL (8.4-25.7); Calc. Creatinine Clearance 66 mL/min (70-130); Calcium 9.8 mg/dL (7.8-10.44); Carbon Dioxide 21 mmol/L (23-31); Chloride 134 mmol/L (98-107); Estimated GFR-MDRD 62; Glucose 192 mg/dL (80-115); Potassium 3.9 mmol/L (3.5-5.1); Sodium 166 mmol/L (136-145)
[2020-03-03] MEDS ORDERED: Insulin Regular 300 UNITS/3 ML VIAL SC PRN (13:03)
--- NOTE | 2020-03-03 13:24 | CON ---
DATE OF CONSULTATION: 03/03/2020 HISTORY OF PRESENT ILLNESS: A 69-year-old demented gentleman from the retirement came to the hospital with altered mental status as noted from the retirement in [place]. Blood sugar was greatly elevated at 678. Lactic acid is 4.8. He is less responsive in retirement compared to his usual state. He was given insulin. When his blood sugar was repeated, it was 1,010. He was given Rocephin 2 g and Zosyn 3. g and started on insulin at 6 units an hour, transferred over here. There is a test for his coronavirus still pending. He is now in the ICU ICU care. PAST MEDICAL HISTORY: Pertinent as outlined for baseline DNR status. PEG in place. Previous admission here several times at [place]. Schizophrenia, dementia, chronic constipation, and hypertension. PAST SURGICAL HISTORY: Previous surgery, he has PEG, otherwise none. MEDICATIONS: His medicine includes; 1. Scopolamine patch. 2. Vitamin. 3. Tylenol. 4. Mucinex. 5. He is now on insulin drip. 6. IV fluids half-normal at 120 an hour. 7. Zosyn and Rocephin, which I will continue. PHYSICAL EXAMINATION: VITAL SIGNS: Temperature 99, pulse 119, blood pressure 115/71, and saturations 100%. GENERAL: Demented gentleman. No verbal response. CHEST: Rhonchi and crackles. CARDIAC: Sinus tach. ABDOMEN: Soft. LABORATORY DATA: His sodium is 167, chloride 133, and glucose 158. White count 15,000. Cultures negative. Continue aggressive hydration. PT, supportive care, and nutrition. I agree with antibiotics. This is a consultation note, 70 minutes, 50% direct patient care. Job ID: [id number]
[2020-03-03] MEDS: CEFTRIAXONE ROCEPHIN IVPB SCH (14:55)
[2020-03-03] MEDS: ADMIXTURE FEE IVPB SCH ×2 (14:55→18:34)
[2020-03-03] MEDS: DEXTROSE IVPB SCH ×2 (14:55→18:34)
[2020-03-03] MEDS: WATER IVPB SCH ×2 (14:55→18:34)
[2020-03-03 15:49] LABS: Lactic Acid 3.2 mmol/L (0.5-2.2)
[2020-03-03 15:56] LABS: Anion Gap 16 mmol/L (10-20); BUN (Urea Nitrogen) 24 mg/dL (8.4-25.7); Calc. Creatinine Clearance 57 mL/min (70-130); Calcium 8.2 mg/dL (7.8-10.44); Carbon Dioxide 23 mmol/L (23-31); Chloride 113 mmol/L (98-107); Estimated GFR-MDRD 52; Glucose 796 mg/dL (80-115); Potassium 3.1 mmol/L (3.5-5.1); Sodium 149 mmol/L (136-145)
[2020-03-03 17:16] LABS: Anion Gap 15 mmol/L (10-20); BUN (Urea Nitrogen) 26 mg/dL (8.4-25.7); Calc. Creatinine Clearance 61 mL/min (70-130); Carbon Dioxide 22 mmol/L (23-31); Estimated GFR-MDRD 57; Glucose 421 mg/dL (80-115); Potassium 4.4 mmol/L (3.5-5.1); Sodium 159 mmol/L (136-145)
[2020-03-03 17:21] LABS: Chloride 126 mmol/L (98-107)
[2020-03-03] MEDS ORDERED: Dextrose 5% in Water 1,000 ML IV PRN (17:31)
[2020-03-03] MEDS ORDERED: Dextrose 50% Abboject 50 ML SYRINGE SLOW IVP PRN (17:31)
--- NOTE | 2020-03-03 17:37 | PDOC.BPN ---
- Brief Progress Note reviewed BMP switched to 1/2 normal saline at 100 ml/hr free water in tube 40ml q4 hr recheck BMP in 4 hours cover glucose with sliding scale insulin
[2020-03-03] MEDS ORDERED: Sodium Chloride 0.45% 1,000 ML IV SCH (17:45)
[2020-03-03] MEDS: Sodium Chloride 0.45% 1,000 ML IV SCH ×2 (17:52→23:30)
[2020-03-03] MEDS: Insulin Regular 300 UNITS/3 ML VIAL SC PRN (18:02)
[2020-03-03] MEDS: TAZOBACTAM IVPB SCH (18:34)
[2020-03-03] MEDS: PIPERACILLIN IVPB SCH (18:34)
[2020-03-03 20:43] LABS: Anion Gap 16 mmol/L (10-20); BUN (Urea Nitrogen) 26 mg/dL (8.4-25.7); Calc. Creatinine Clearance 62 mL/min (70-130); Carbon Dioxide 21 mmol/L (23-31); Estimated GFR-MDRD 58; Glucose 425 mg/dL (80-115); Potassium 3.9 mmol/L (3.5-5.1); Sodium 159 mmol/L (136-145)
[2020-03-03 20:49] LABS: Chloride 126 mmol/L (98-107)
--- NOTE | 2020-03-03 22:04 | EKG ---
Test Reason : Blood Pressure : / mmHG Vent. Rate : 119 BPM Atrial Rate : 119 BPM P-R Int : 122 ms QRS Dur : 062 ms QT Int : 330 ms P-R-T Axes : 055 -40 -72 degrees QTc Int : 464 ms Sinus tachycardia Left axis deviation T wave abnormality, consider inferior ischemia T wave abnormality, consider anterolateral ischemia Abnormal ECG No previous ECGs available Confirmed by Cristina HYDE ([id number]) on 03/03/2020 10:04:15 PM Referred By: NILDA Jackson Confirmed By:Cristina HYDE
[2020-03-04] MEDS: WATER IVPB SCH ×4 (00:18→14:32)
[2020-03-04] MEDS: TAZOBACTAM IVPB SCH ×3 (00:18→12:14)
[2020-03-04] MEDS: ADMIXTURE FEE IVPB SCH ×4 (00:18→14:32)
[2020-03-04] MEDS: PIPERACILLIN IVPB SCH ×3 (00:18→12:14)
[2020-03-04] MEDS: DEXTROSE IVPB SCH ×4 (00:18→14:32)
[2020-03-04] MEDS: Insulin Regular 300 UNITS/3 ML VIAL SC PRN ×2 (00:19→06:06)
[2020-03-04] MEDS: Sodium Chloride 0.45% 1,000 ML IV SCH ×6 (05:15→21:33)
[2020-03-04 06:37] LABS: Anion Gap 14 mmol/L (10-20); BUN (Urea Nitrogen) 20 mg/dL (8.4-25.7); Calc. Creatinine Clearance 73 mL/min (70-130); Calcium 8.9 mg/dL (7.8-10.44); Carbon Dioxide 23 mmol/L (23-31); Chloride 123 mmol/L (98-107); Estimated GFR-MDRD 70; Glucose 424 mg/dL (80-115); Potassium 3.6 mmol/L (3.5-5.1); Sodium 156 mmol/L (136-145)
[2020-03-04] MEDS ORDERED: Insulin Glargine 26 UNITS in Pre-Filled Syringe 1 EACH SC SCH (08:00)
--- NOTE | 2020-03-04 08:19 | PDOC.FM ---
- Subjective Subjective: Resting in bed, NAEO. - Objective MAR Reviewed: Yes Vital Signs & Weight: Vital Signs (12 hours) Temp Pulse Resp BP Pulse Ox 03/04/20 07:29 99.0 F 107 H 16 128/81 100 03/04/20 04:13 98.7 F 103 H 18 124/77 100 03/04/20 00:00 98.2 F 111 H 18 129/81 100 Weight Admit Weight 89.811 kg Weight 90 kg Most Recent Monitor Data Heart Rate from ECG 111 NIBP 127/97 NIBP BP-Mean 107 Respiration from ECG 17 SpO2 100 I&O: 03/03/20 03/04/20 03/05/20 06:59 06:59 06:59 Intake Total 1149.8 5497 Output Total 865 930 Balance 284.8 4567 Result Diagrams: 03/04/20 08:32 03/04/20 05:59 Phys Exam - Physical Examination Constitutional: NAD HEENT: moist MMs poor oropharyngeal jennifer Respiratory: no wheezing, clear to auscultation bilateral Cardiovascular: RRR, no significant murmur Gastrointestinal: soft Musculoskeletal: no edema Deviation from normal: a&o x0 patient non verbal a baseline Dx/Plan (1) Hyperglycemia Code(s): R73.9 - HYPERGLYCEMIA, UNSPECIFIED Status: Acute (2) Lactic acidosis Code(s): E87.2 - ACIDOSIS Status: Acute (3) Prolonged QT interval Code(s): R94.31 - ABNORMAL ELECTROCARDIOGRAM [ECG] [EKG] Status: Acute (4) Hypernatremia Code(s): E87.0 - HYPEROSMOLALITY AND HYPERNATREMIA Status: Acute (5) ROSI (acute kidney injury) Code(s): N17.9 - ACUTE KIDNEY FAILURE, UNSPECIFIED Status: Acute (6) High anion gap metabolic acidosis Code(s): E87.2 - ACIDOSIS Status: Acute (7) Sepsis Code(s): A41.9 - SEPSIS, UNSPECIFIED ORGANISM Status: Acute (8) Normocytic anemia Code(s): D64.9 - ANEMIA, UNSPECIFIED Status: Acute (9) UTI (urinary tract infection) Status: Acute (10) Constipation Code(s): K59.00 - CONSTIPATION, UNSPECIFIED Status: Chronic (11) Dementia Code(s): F03.90 - UNSPECIFIED DEMENTIA WITHOUT BEHAVIORAL DISTURBANCE Status: Chronic (12) HTN (hypertension) Code(s): I10 - ESSENTIAL (PRIMARY) HYPERTENSION Status: Chronic (13) History of CVA (cerebrovascular accident) Code(s): Z86.73 - PRSNL HX OF TIA (TIA), AND CEREB INFRC W/O RESID DEFICITS Status: Chronic (14) Schizophrenia Code(s): F20.9 - SCHIZOPHRENIA, UNSPECIFIED Status: Chronic - Plan Plan: 69 yo M with Alzheimer's dementia, chronic encephalopathy, PEG tube here for HHS and sepsis 2/2 PNA vs. COVID19 #. Hypernatremia -Improving, down 11mEq in 24 hours -Stop free water flushes -Switched yesterday to 1/2 NS @200/hr, will continue. Goal correction 8-10mEq/ 24 hours -5.1L deficit -UO improving -Rpt BMP this afternoon #. AG acidosis 2/2 HHS in new onset diabetic -A1c 9.9% -Gap closed, Hyperglycemic -Change to aggressive SS #. Sepsis 2/2 PNA vs. COV19 vs. other source -febrile, tachycardic, tachypneic -On Rocephin & zosyn -CXR no focal consolidation- repeat in AM -UA negative -Continue abx pending BCx, growing coag neg staph 1/2, if neg, then d/c all abx -Likely non sepsis but sequelae of DKA #ROSI-resolved #COV19 PUI -Negative test #. Lactic acidosis- resolved #. Prolonged QTc -545ms -avoid QT prolonging agents -cardiac monitoring -repeat EKG this AM #. Schizophrenia -No home meds, after discussing with PCP he is not any any of these meds due to quality of life #. Dementia with PEG tube feeds -Nutrition consulted, continue tube feeds dispo: d/c back to [place] pending hypernatremia normalization, glycemic control and pending cultures
[2020-03-04] MEDS: Insulin Glargine 18 UNITS in Pre-Filled Syringe 1 EACH SC SCH (09:10)
[2020-03-04] MEDS: Enoxaparin Sodium 40 MG/0.4 ML SYRINGE SC SCH (09:15)
[2020-03-04] MEDS: Multivits W-Minerals Liquid 5 ML UDCUP PO SCH (09:19)
[2020-03-04 09:35] LABS: #Basophils 0.1 thou/uL (0.0-0.2); #Eosinphils 0.5 thou/uL (0.0-0.7); #Lymphocytes 4.2 thou/uL (1.20-3.40); #Monocytes 0.9 thou/uL (0.11-0.59); #Neutrophils 5.7 thou/uL (1.40-6.50); %Basophils 0.7 % (0.0-1.0); %Eosinophils 4.4 % (0.0-10.0); %Lymphocytes 36.6 % (21.0-51.0); %Monocytes 7.8 % (0.0-10.0); %Neutrophils 50.5 % (42.0-75.0); Hemoglobin 11.6 g/dL (14.0-18.0); Large Platelets SLIGHT; MDiff Complete? YES; Mean Corpuscular Hemoglobin 25.7 pg (27.0-31.0); Mean Corpuscular Volume 85.7 fL (78.0-98.0); Mean Platelet Volume 11.8 fL (7.4-10.4); Platelet Count 114 thou/uL (130-400); Platelet Morphology Comment PLT clumps seen-LOW; RBC Distribution Width 15.2 % (11.5-14.5); RBC Morphology Normal; Red Blood Cell (RBC) Count 4.53 mill/uL (4.70-6.10); White Blood Cell (WBC) Count 11.3 thou/uL (4.8-10.8)
--- NOTE | 2020-03-04 09:48 | PRG ---
DATE OF SERVICE: 03/04/2020 SUBJECTIVE: Kd Escobar is a 69-year-old gentleman from the [facility], who remains encephalopathic this morning. OBJECTIVE: VITAL SIGNS: His blood pressure is 128/81, saturations are 100% on room air, respirations 16, temperature 99, pulse 107. CHEST: Decreased breath sounds. No wheezing. CARDIAC: Normal S1, S2. No gallops. ABDOMEN: No masses. NEUROLOGIC: Encephalopathic. LABORATORY DATA: His sodium is still 156. Lytes are normal. Glucose is 424. ASSESSMENT: 1. Baseline cerebrovascular accident. 2. Schizophrenia. 3. Uncontrolled diabetes. 4. Electrolyte imbalance. 5. Dementia. 6. Probably urinary tract infection. 7. Sepsis. PLAN: Continue aggressive hydration. He is still significantly volume depleted. Deescalate antibiotics once all the cultures are back. He is a DNR. Please call Pulmonary if needed. Job ID: [id number]
--- NOTE | 2020-03-04 10:56 | PDOC.BPN ---
- Brief Progress Note 03/04/20- [address] Calos Ruth I personally evaluated the patient and discussed the management with Dr. Ruth I agree with the History, Examination, Assessment and Plan documented above with any addition or exceptions noted below. 69 yo M with Hypernatremia, Alzheimer's dementia, chronic encephalopathy, PEG tube here for HHS and sepsis 2/2 PNA vs. COVID. COVID pending. Sodium improved to 161. Will titrate up on Lantus. Cont 1/2 normal saline.
[2020-03-04] MEDS ORDERED: Insulin Glargine 24 UNITS in Pre-Filled Syringe 1 EACH SC SCH (11:00)
[2020-03-04] MEDS: HumaLOG 300 UNITS/3 ML VIAL SC PRN ×2 (12:16→18:16)
[2020-03-04] MEDS: CEFTRIAXONE ROCEPHIN IVPB SCH (14:32)
[2020-03-04 16:12] LABS: Anion Gap 11 mmol/L (10-20); BUN (Urea Nitrogen) 16 mg/dL (8.4-25.7); Calc. Creatinine Clearance 84 mL/min (70-130); Calcium 8.6 mg/dL (7.8-10.44); Carbon Dioxide 23 mmol/L (23-31); Chloride 122 mmol/L (98-107); Estimated GFR-MDRD 82; Glucose 297 mg/dL (80-115); Potassium 3.4 mmol/L (3.5-5.1); Sodium 153 mmol/L (136-145)
[2020-03-04] MEDS ORDERED: Potassium Chloride 20 MEQ TAB PO SCH (16:45)
[2020-03-04] MEDS: Acetaminophen 650 MG Suppository PR PRN (21:36)
[2020-03-04 22:06] LABS: Anion Gap 18 mmol/L (10-20); BUN (Urea Nitrogen) 14 mg/dL (8.4-25.7); Calc. Creatinine Clearance 81 mL/min (70-130); Calcium 9.3 mg/dL (7.8-10.44); Carbon Dioxide 22 mmol/L (23-31); Chloride 117 mmol/L (98-107); Estimated GFR-MDRD 78; Glucose 251 mg/dL (80-115); Potassium 3.6 mmol/L (3.5-5.1); Sodium 153 mmol/L (136-145)
--- NOTE | 2020-03-04 22:30 | RAD ---
CHEST 1 VIEW: Date: 03/04/2020 HISTORY: Coarse breath sounds. COMPARISON: Radiograph prior date. FINDINGS: Similar appearance to the opacity in the left lung base. Right lung base appears clear. No pneumothor ax. No significant effusion. IMPRESSION: Findings concerning for left lower lobe pneumonia or aspiration. POS: HOME
--- NOTE | 2020-03-04 23:07 | PDOC.BPN ---
- Brief Progress Note Notified by nursing of F of 101.4 F and that patient had vomited white foamy sputum. Drs. Randy Coffey and Avi Calvillo went to evaluate the patient. He was tachycardic to the 110s, sleeping in bed, blood pressure 146/73, satting 99% on RA. Patient is nonverbal at baseline. Expiratory crackles R>L and mild wheezing at bases. Ordered CXR and procal. CXR showed possible LLL pneumonia vs aspiration. Procal negative at 0.11. Nursing called and informed us that temperature had increased to 103.2 F. Ordered repeat UA, blood and urine cultures. Restarted Rocephin and zosyn. Feeds were held for 2 hours. Started PPI per tube for reflux.
[2020-03-04] MEDS ORDERED: Pantoprazole 40 MG VIAL IVP SCH (23:15)
[2020-03-04] MEDS ORDERED: Pantoprazole 40 MG GRANULES PACKET PER TUBE SCH (23:30)
[2020-03-04 23:33] LABS: Bacteria/HPF None Seen HPF (None Seen); Bilirubin Negative (Negative); Blood, Urine 1+ (Negative); Clarity Clear (Clear); Glucose, Urine (Dipstick) 100 mg/dL (Negative); Leukocyte Negative Leu/uL (Negative); Nitrite Negative (Negative); Protein, Urine (Dipstick) 30 mg/dL (Neg-Trace); Squamous Epithelial None Seen HPF (0-3); WBC/HPF 0-3 HPF (0-3)
[2020-03-04] MEDS ORDERED: Piperacillin/Tazobactam 4.5 GM in Sodium Chloride 0.9% 100 ML IVPB SCH (23:59)
[2020-03-05] MEDS: Piperacillin/Tazobactam 4.5 GM in Sodium Chloride 0.9% 100 ML IVPB SCH ×3 (00:07→15:33)
[2020-03-05] MEDS ORDERED: Scopolamine 1.5 mg/72 hour Patch TD SCH ×2 (01:00→23:59)
[2020-03-05] MEDS: Acetaminophen 650 MG Suppository PR PRN ×2 (01:35→05:08)
[2020-03-05] MEDS: Sodium Chloride 0.45% 1,000 ML IV SCH ×4 (05:00→21:50)
[2020-03-05] MEDS: HumaLOG 300 UNITS/3 ML VIAL SC PRN ×3 (05:11→16:54)
[2020-03-05 06:22] LABS: Anion Gap 15 mmol/L (10-20); BUN (Urea Nitrogen) 15 mg/dL (8.4-25.7); Calc. Creatinine Clearance 89 mL/min (70-130); Carbon Dioxide 17 mmol/L (23-31); Chloride 121 mmol/L (98-107); Estimated GFR-MDRD 87; Glucose 247 mg/dL (80-115); Potassium 3.9 mmol/L (3.5-5.1); Sodium 149 mmol/L (136-145)
[2020-03-05] MEDS: Enoxaparin Sodium 40 MG/0.4 ML SYRINGE SC SCH (07:38)
[2020-03-05] MEDS: Multivits W-Minerals Liquid 5 ML UDCUP PO SCH (07:38)
--- NOTE | 2020-03-05 07:47 | PDOC.FM ---
- Subjective Subjective: Had fever last night, started on abx. CXR with new left lower lobe infiltrate. Restarted on abx, cultures pending Patient nonverbal, resting in bed, responsive to pain - Objective MAR Reviewed: Yes Vital Signs & Weight: Vital Signs (12 hours) Temp Pulse Resp BP Pulse Ox 03/05/20 07:43 100.2 F H 99 28 H 117/64 100 03/05/20 06:19 99.2 F 03/05/20 05:00 100.8 F H 106 H 18 113/68 100 03/05/20 03:32 100.7 F H 03/05/20 03:13 105 H 20 124/77 94 L 03/05/20 01:26 102.6 F H 115 H 20 114/70 98 03/05/20 00:06 100.4 F H 03/04/20 23:44 114 H 20 109/62 95 03/04/20 23:25 103.2 F H 03/04/20 22:50 103.2 F H 118 H 28 H 115/74 91 L 03/04/20 20:58 101.4 F H 113 H 20 146/73 H 98 03/04/20 20:00 99.2 F 104 H 18 130/91 H 99 Weight Admit Weight 89.811 kg Weight 90 kg Most Recent Monitor Data Heart Rate from ECG 111 NIBP 127/97 NIBP BP-Mean 107 Respiration from ECG 17 SpO2 100 I&O: 03/04/20 03/05/20 03/06/20 06:59 06:59 06:59 Intake Total 5497 5720 Output Total 930 1150 Balance 4567 4570 Result Diagrams: 03/04/20 08:32 03/05/20 05:56 Phys Exam - Physical Examination Constitutional: NAD poor oropharyngeal jennifer tachycardic Gastrointestinal: soft Musculoskeletal: no edema Neurological: moves all 4 limbs Deviation from normal: unable to assess (but at baseline) Dx/Plan (1) Hyperglycemia Code(s): R73.9 - HYPERGLYCEMIA, UNSPECIFIED Status: Acute (2) Lactic acidosis Code(s): E87.2 - ACIDOSIS Status: Acute (3) Prolonged QT interval Code(s): R94.31 - ABNORMAL ELECTROCARDIOGRAM [ECG] [EKG] Status: Acute (4) Hypernatremia Code(s): E87.0 - HYPEROSMOLALITY AND HYPERNATREMIA Status: Acute (5) ROSI (acute kidney injury) Code(s): N17.9 - ACUTE KIDNEY FAILURE, UNSPECIFIED Status: Acute (6) High anion gap metabolic acidosis Code(s): E87.2 - ACIDOSIS Status: Acute (7) Sepsis Code(s): A41.9 - SEPSIS, UNSPECIFIED ORGANISM Status: Acute (8) Normocytic anemia Code(s): D64.9 - ANEMIA, UNSPECIFIED Status: Acute (9) UTI (urinary tract infection) Status: Acute (10) Constipation Code(s): K59.00 - CONSTIPATION, UNSPECIFIED Status: Chronic (11) Dementia Code(s): F03.90 - UNSPECIFIED DEMENTIA WITHOUT BEHAVIORAL DISTURBANCE Status: Chronic (12) HTN (hypertension) Code(s): I10 - ESSENTIAL (PRIMARY) HYPERTENSION Status: Chronic (13) History of CVA (cerebrovascular accident) Code(s): Z86.73 - PRSNL HX OF TIA (TIA), AND CEREB INFRC W/O RESID DEFICITS Status: Chronic (14) Schizophrenia Code(s): F20.9 - SCHIZOPHRENIA, UNSPECIFIED Status: Chronic - Plan Plan: 69 yo M with Alzheimer's dementia, chronic encephalopathy, PEG tube here for HHS and sepsis 2/2 PNA vs. COVID19 #. Sepsis 2/2 PNA -asp vs hosp acquired -Rocephin & zosyn restarted -CXR with LLL infiltrate -Pending BCx #. Hypernatremia -Improving -Cont 1/2NS at 200cc/hr -Rpt BMP this afternoon #. Hyperglycemia in new onset diabetic -s/p DKA protocol for HHS -A1c 9.9% -Inc lantus to 60AM, 15qHS, start metformin #. Sepsis 2/2 PNA vs. COV19 vs. other source -febrile, tachycardic, tachypneic -On Rocephin & zosyn -CXR no focal consolidation- repeat in AM -UA negative -Continue abx pending BCx, growing coag neg staph 1/2, if neg, then d/c all abx -Likely non sepsis but sequelae of DKA #ROSI-resolved #COV19 PUI -Negative test #. Lactic acidosis- resolved #. Prolonged QTc -545ms -avoid QT prolonging agents -cardiac monitoring -repeat EKG this AM #. Schizophrenia -No home meds, after discussing with PCP he is not any any of these meds due to quality of life #. Dementia with PEG tube feeds -Nutrition consulted, continue tube feeds dispo: d/c back to [place] pending hypernatremia normalization, glycemic control and pending cultures. Hospice screen Addendum - Attending - Attending Attestation Date/Time: 03/05/20 3672 I personally evaluated the patient and discussed the management with Dr. Ruth I agree with the History, Examination, Assessment and Plan documented above with any addition or exceptions noted below. 69 yo M with Hypernatremia, Alzheimer's dementia, chronic encephalopathy, PEG tube here for HHS and sepsis 2/2 PNA. COVID negative. Cultures negative, antibiotics were held yesterday. CXR shows LLL PNA, suspect aspiration from tube feeds. Antibiotics were restarted, repeat cultures drawn. Daughter agrees with plans for hospice, patient is AxOx0 at baseline, hospice agency consulted.
[2020-03-05] MEDS ORDERED: Insulin Glargine 50 UNITS in Pre-Filled Syringe 1 EACH SC SCH (08:00)
[2020-03-05] MEDS ORDERED: HumaLOG 300 UNITS/3 ML VIAL SC SCH (09:00)
[2020-03-05] MEDS: metFORMIN 500 MG TAB PO SCH (09:10)
[2020-03-05] MEDS: Insulin Glargine 60 UNITS in Pre-Filled Syringe 1 EACH SC SCH (09:34)
[2020-03-05] MEDS: cefTRIAXone\\ROCEPHIN 1 GM in Sodium Chloride 0.9% 100 ML IVPB SCH (13:54)
[2020-03-05 15:41] LABS: #Basophils 0.1 thou/uL (0.0-0.2); #Eosinphils 0.4 thou/uL (0.0-0.7); #Lymphocytes 3.6 thou/uL (1.20-3.40); #Monocytes 0.4 thou/uL (0.11-0.59); #Neutrophils 5.8 thou/uL (1.40-6.50); %Basophils 0.8 % (0.0-1.0); %Eosinophils 3.5 % (0.0-10.0); %Lymphocytes 34.9 % (21.0-51.0); %Monocytes 4.3 % (0.0-10.0); %Neutrophils 56.5 % (42.0-75.0); Hemoglobin 10.6 g/dL (14.0-18.0); Mean Corpuscular Hemoglobin 26.6 pg (27.0-31.0); Mean Corpuscular Volume 85.7 fL (78.0-98.0); Red Blood Cell (RBC) Count 3.99 mill/uL (4.70-6.10); White Blood Cell (WBC) Count 10.3 thou/uL (4.8-10.8)
[2020-03-05 16:00] LABS: Anion Gap 12 mmol/L (10-20); BUN (Urea Nitrogen) 14 mg/dL (8.4-25.7); Calc. Creatinine Clearance 100 mL/min (70-130); Calcium 8.2 mg/dL (7.8-10.44); Carbon Dioxide 20 mmol/L (23-31); Chloride 118 mmol/L (98-107); Estimated GFR-MDRD Greater than 90; Glucose 243 mg/dL (80-115); Potassium 3.1 mmol/L (3.5-5.1); Sodium 147 mmol/L (136-145)
[2020-03-05 16:03] LABS: Mean Platelet Volume 12.1 fL (7.4-10.4); Platelet Count 111 thou/uL (130-400); Platelet Morphology Comment Appears Adequate
[2020-03-05] MEDS ORDERED: Potassium Chloride 10 MEQ in Premix Bag 1 BAG IVPB SCH ×2 (18:15)
[2020-03-05] MEDS ORDERED: Pantoprazole 40 MG GRANULES PACKET PER TUBE SCH (21:00)
[2020-03-05] MEDS ORDERED: Insulin Glargine 15 UNITS in Pre-Filled Syringe 1 EACH SC SCH (21:00)
[2020-03-05] MEDS ORDERED: Pantoprazole 40 MG VIAL IVP SCH (21:00)
[2020-03-06] MEDS: Piperacillin/Tazobactam 4.5 GM in Sodium Chloride 0.9% 100 ML IVPB SCH ×2 (00:35→09:24)
[2020-03-06] MEDS ORDERED: Lorazepam 0.5 MG TAB PO SCH (02:45)
[2020-03-06] MEDS: HumaLOG 300 UNITS/3 ML VIAL SC PRN ×2 (06:16→12:00)
[2020-03-06 06:35] LABS: Anion Gap 13 mmol/L (10-20); BUN (Urea Nitrogen) 15 mg/dL (8.4-25.7); Calc. Creatinine Clearance 86 mL/min (70-130); Calcium 8.5 mg/dL (7.8-10.44); Carbon Dioxide 18 mmol/L (23-31); Chloride 116 mmol/L (98-107); Estimated GFR-MDRD 84; Glucose 223 mg/dL (80-115); Potassium 4.3 mmol/L (3.5-5.1); Sodium 143 mmol/L (136-145)
--- NOTE | 2020-03-06 07:06 | PDOC.FM ---
- Subjective Subjective: Developed fever and upper airway secretions requiring suctioning last night in which night team was called on. Secretions improved with suctioning. No change in clinical/mental status overall. Sister of patient has agreed to hospice. - Objective Vital Signs & Weight: Vital Signs (12 hours) Temp Pulse Resp BP Pulse Ox 03/06/20 04:25 99.3 F 105 H 28 H 100 03/06/20 03:39 100.9 F H 115 H 28 H 128/77 100 03/06/20 01:55 100.3 F H 120 H 28 H 100 03/06/20 00:00 99.8 F H 86 26 H 153/79 H 100 03/05/20 20:00 99.1 F 92 26 H 105/63 100 03/05/20 19:42 100 Weight Admit Weight 89.811 kg Weight 90 kg Most Recent Monitor Data Heart Rate from ECG 111 NIBP 127/97 NIBP BP-Mean 107 Respiration from ECG 17 SpO2 100 I&O: 03/05/20 03/06/20 03/07/20 06:59 06:59 06:59 Intake Total 5720 1030 Output Total 1150 900 Balance 4570 130 Result Diagrams: 03/05/20 15:33 03/06/20 06:02 Phys Exam - Physical Examination Constitutional: NAD non verbal, sleeping, responsive to pain Respiratory: clear to auscultation bilateral tachycardic Gastrointestinal: soft PEG tube in place Musculoskeletal: no edema Skin: no rash, cap refill <2 seconds Dx/Plan (1) Hyperglycemia Code(s): R73.9 - HYPERGLYCEMIA, UNSPECIFIED Status: Acute (2) Lactic acidosis Code(s): E87.2 - ACIDOSIS Status: Acute (3) Prolonged QT interval Code(s): R94.31 - ABNORMAL ELECTROCARDIOGRAM [ECG] [EKG] Status: Acute (4) Hypernatremia Code(s): E87.0 - HYPEROSMOLALITY AND HYPERNATREMIA Status: Acute (5) ROSI (acute kidney injury) Code(s): N17.9 - ACUTE KIDNEY FAILURE, UNSPECIFIED Status: Acute (6) High anion gap metabolic acidosis Code(s): E87.2 - ACIDOSIS Status: Acute (7) Sepsis Code(s): A41.9 - SEPSIS, UNSPECIFIED ORGANISM Status: Acute (8) Normocytic anemia Code(s): D64.9 - ANEMIA, UNSPECIFIED Status: Acute (9) UTI (urinary tract infection) Status: Acute (10) Constipation Code(s): K59.00 - CONSTIPATION, UNSPECIFIED Status: Chronic (11) Dementia Code(s): F03.90 - UNSPECIFIED DEMENTIA WITHOUT BEHAVIORAL DISTURBANCE Status: Chronic (12) HTN (hypertension) Code(s): I10 - ESSENTIAL (PRIMARY) HYPERTENSION Status: Chronic (13) History of CVA (cerebrovascular accident) Code(s): Z86.73 - PRSNL HX OF TIA (TIA), AND CEREB INFRC W/O RESID DEFICITS Status: Chronic (14) Schizophrenia Code(s): F20.9 - SCHIZOPHRENIA, UNSPECIFIED Status: Chronic - Plan Plan: 69 yo M with Alzheimer's dementia, chronic encephalopathy, PEG tube here for HHS and sepsis 2/2 PNA vs. COVID19 #. Sepsis 2/2 PNA -asp vs hosp acquired -Rocephin & zosyn restarted -CXR with LLL infiltrate -Pending BCx #. Hypernatremia -Resolved #. Hyperglycemia in new onset diabetic -s/p DKA protocol for HHS -A1c 9.9% -Continue lantus to 60AM, 15qHS, start metformin -Sliding scale #. Sepsis 2/2 PNA vs. COV19 vs. other source -febrile, tachycardic, tachypneic -On Rocephin & zosyn -CXR no focal consolidation- repeat in AM -UA negative -Continue abx pending BCx, growing coag neg staph 1/2, if neg, then d/c all abx -Likely non sepsis but sequelae of DKA #ROSI-resolved #COV19 PUI -Negative test #. Lactic acidosis- resolved #. Prolonged QTc -545ms -avoid QT prolonging agents -cardiac monitoring -repeat EKG this AM #. Schizophrenia -No home meds, after discussing with PCP he is not any any of these meds due to quality of life #. Dementia with PEG tube feeds -Nutrition consulted, continue tube feeds dispo: Prognosis poor. Discussed with sister (ERIKA) who agrees to hospice and withdrawing IV abx if prevents from entering into comfort/palliative hospice care. Understands situation and just wants to make brother comfortable. Will discuss w/ CM transitioning to inpatient hospice. Addendum - Attending - Attending Attestation Date/Time: 03/06/20 [id number] I personally evaluated the patient and discussed the management with Dr. Ruth I agree with the History, Examination, Assessment and Plan documented above with any addition or exceptions noted below. 69 yo M with Hypernatremia, Alzheimer's dementia, chronic encephalopathy, PEG tube here for HHS and sepsis 2/2 PNA. COVID negative. Overnight patient's secretions increased and was difficult for nursing to manage. Patient appears to be transitioning, would likely be appropriate for inpatient hospice, will consult for hospice eval.
[2020-03-06] MEDS: Insulin Glargine 60 UNITS in Pre-Filled Syringe 1 EACH SC SCH (09:23)
[2020-03-06] MEDS: metFORMIN 500 MG TAB PO SCH (09:24)
[2020-03-06] MEDS: Multivits W-Minerals Liquid 5 ML UDCUP PO SCH (09:24)
[2020-03-06] MEDS: Enoxaparin Sodium 40 MG/0.4 ML SYRINGE SC SCH (09:25)
[2020-03-06 11:14] VITALS: BP 157/88; TEMP 99.7
[2020-03-06] MEDS: cefTRIAXone\\ROCEPHIN 1 GM in Sodium Chloride 0.9% 100 ML IVPB SCH (12:45)
--- NOTE | 2020-03-08 14:17 | DIS ---
DATE OF ADMISSION: 03/02/2020 DATE OF DISCHARGE: 03/06/2020 ADMITTING ATTENDING: Pedro Hernandez MD DISCHARGE ATTENDING: Pedro Hernandez MD RESIDENT: Concepción Ruth, PGY-2 PRIMARY DIAGNOSES: 1. Anion gap acidosis secondary to hyperosmolar hyperglycemic state, new onset diabetes type 2. 2. Sepsis secondary to pneumonia versus COVID secondary to suspected aspiration pneumonia. 3. Hypernatremia secondary to hypovolemia and free-water deficit. 4. Acute kidney injury. 5. COVID rule out, negative. SECONDARY DIAGNOSES: 1. Schizophrenia. 2. Advanced age dementia with impaired swallowing. 3. PEG tube feeding requirement. 4. Prolonged QTc. 5. Chronic kidney disease. CONSULTATION: 1. Pulmonology, Dr. Martel. 2. Palliative Care. 3. Hospice. HISTORY OF PRESENT ILLNESS/HOSPITAL COURSE: Mr. Kd Escobar is a 69-year-old male, who is nonverbal at baseline, requiring PEG tube feeds, who is a [facility] resident. He was sent over due to altered mental status and suspect COVID infection. In the ER, he was found to be hyperglycemic and HHS secondary to new onset diabetes. He is also severely hypernatremic. Over the course of the next several days, his hypernatremia corrected with progressive free-water replacement. He was COVID negative. He was also treated for presumed aspiration pneumonia. His mental status improved close to baseline. However, in the last few days before discharge, he redeveloped fever despite being antibiotics and his mental status deteriorated. Intensive discussion was had with his sister, who is medical power of captain airline pilot in regard to quality of life and how we want to proceed. She ultimately decided to transition over to hospice since this is something he has been continued for quite some time. He was successfully transitioned on 03/06/2020 to inpatient hospital service. In regard to prognosis, it is poor. CONDITION: Guarded but stable. DISCHARGE INSTRUCTIONS: 1. Disposition location: Inpatient hospice. 2. Diet: PEG tube feeds. 3. Activities: None as the patient is unable to partake in voluntary therapy due to mental status. 4. Followup. Please follow up with family, Chelsy Escobar, to keep her updated in this process. Job ID: [id number] MTDD
--- NOTE | 2020-03-11 23:25 | EKG ---
Test Reason : Blood Pressure : / mmHG Vent. Rate : 097 BPM Atrial Rate : 097 BPM P-R Int : 126 ms QRS Dur : 062 ms QT Int : 364 ms P-R-T Axes : 068 -41 -77 degrees QTc Int : 462 ms Normal sinus rhythm Left axis deviation Prolonged QT Abnormal ECG When compared with ECG of 03-MAR-2020 11:57, No significant change was found Confirmed by Cristina HYDE ([id number]) on 03/11/2020 11:24:56 PM Referred By: Kiera Jackson Confirmed By:Cristina HYDE
== END 2020-03-06 15:02 | disposition hospice, inpatient (51) | DRG 871 ==
LOC: ERS 15:16 → CCU 16:25 → T4-B 03-03 14:21
PROVIDERS: ADMIT Family Medicine; ATTEND Family Medicine
PROC: 8E0ZXY6 Isolation (ICD-10-PCS; principal; 2020-03-02)
DX: A41.9 Sepsis, unspecified organism (principal); E11.00 Type 2 diabetes mellitus with hyperosmolarity without nonketotic hyperglycemic-hyperosmolar coma (NKHHC); J69.0 Pneumonitis due to inhalation of food and vomit; E87.0 Hyperosmolality and hypernatremia; E87.2 Acidosis; N17.9 Acute kidney failure, unspecified; G93.49 Other encephalopathy; N39.0 Urinary tract infection, site not specified; Z20.828 Contact with and (suspected) exposure to other viral communicable diseases; I10 Essential (primary) hypertension; F20.9 Schizophrenia, unspecified; R94.31 Abnormal electrocardiogram [ECG] [EKG]; D64.9 Anemia, unspecified; Z66 Do not resuscitate; F10.20 Alcohol dependence, uncomplicated; F12.20 Cannabis dependence, uncomplicated; E86.9 Volume depletion, unspecified; R65.20 Severe sepsis without septic shock; K59.00 Constipation, unspecified; G30.9 Alzheimer's disease, unspecified; F02.80 Dementia in other diseases classified elsewhere, unspecified severity, without behavioral disturbance, psychotic disturbance, mood disturbance, and anxiety; Z93.1 Gastrostomy status; Z79.4 Long term (current) use of insulin; Z86.73 Personal history of transient ischemic attack (TIA), and cerebral infarction without residual deficits; E11.65 Type 2 diabetes mellitus with hyperglycemia
CPT/HCPCS: 36415; 36416; 71045; 80048; 81001; 81015; 82010; 83036; 83605; 83735; 83930; 84100; 84145; 85007; 85025; 85027; 87040; 87086; 93005; 93010; 96365; 96366; 99292; A4217; J0696; J1650; J1815; J2543; J3480; J3490; J7050; J7070

== ENCOUNTER 2020-03-06 15:07 | Inpatient (IN) | payer OTHER ==
[2020-03-06 15:14] VITALS: BMI 26.8
[2020-03-06] MEDS ORDERED: Scopolamine 1.5 mg/72 hour Patch TOP PRN (15:23)
[2020-03-06] MEDS ORDERED: Ondansetron PF 4 MG/2 ML Vial IVP PRN (15:23)
[2020-03-06] MEDS: Lorazepam 2 MG/ML VIAL SLOW IVP SCH ×2 (16:13→21:33)
[2020-03-06] MEDS: Morphine 2 MG/ML SYRINGE SLOW IVP PRN (18:30)
[2020-03-07] MEDS: Lorazepam 2 MG/ML VIAL SLOW IVP SCH ×6 (01:24→20:48)
[2020-03-07] MEDS: Morphine 2 MG/ML SYRINGE SLOW IVP PRN ×3 (06:58→18:52)
[2020-03-07] MEDS ORDERED: Prevnar 13-Val Conj/PF 0.5 ML SYRINGE IM ONE (15:30)
[2020-03-08] MEDS: Lorazepam 2 MG/ML VIAL SLOW IVP SCH ×6 (01:34→21:25)
[2020-03-08] MEDS ORDERED: Morphine 2 MG/ML SYRINGE SLOW IVP PRN (19:02)
[2020-03-08] MEDS: diphenhydrAMINE 50 MG/ML VIAL IVP SCH (20:07)
[2020-03-08] MEDS: Morphine 2 MG/ML SYRINGE SLOW IVP PRN (22:30)
[2020-03-09] MEDS: Lorazepam 2 MG/ML VIAL SLOW IVP SCH ×5 (01:04→18:47)
[2020-03-09] MEDS: diphenhydrAMINE 50 MG/ML VIAL IVP SCH ×3 (01:07→13:33)
[2020-03-09] MEDS: Morphine 2 MG/ML SYRINGE SLOW IVP PRN (09:51)
[2020-03-09] MEDS ORDERED: Furosemide 40 MG/4 ML VIAL SLOW IVP SCH (10:15)
[2020-03-09] MEDS: Morphine 2 MG/ML SYRINGE SLOW IVP SCH ×2 (13:33→18:47)
[2020-03-09] MEDS ORDERED: Morphine 10 MG/0.5 ML ORAL SYRINGE SL PRN (16:41)
[2020-03-09] MEDS: Lorazepam 1 MG TAB SL SCH ×2 (18:15→20:45)
[2020-03-09] MEDS: Morphine 10 MG/0.5 ML ORAL SYRINGE SL SCH ×2 (18:17→20:43)
[2020-03-09 21:04] VITALS: BP 108/75
[2020-03-10] MEDS: Lorazepam 1 MG TAB SL SCH ×2 (01:11→05:12)
[2020-03-10] MEDS: Morphine 10 MG/0.5 ML ORAL SYRINGE SL SCH ×2 (01:12→05:12)
[2020-03-10 07:46] VITALS: TEMP 98.7
== END 2020-03-10 08:42 | disposition expired | DRG 871 ==
LOC: T4-B 15:07
PROVIDERS: ADMIT Family Medicine; ATTEND Family Medicine
DX: A41.9 Sepsis, unspecified organism (principal); E11.10 Type 2 diabetes mellitus with ketoacidosis without coma; J18.9 Pneumonia, unspecified organism; E87.0 Hyperosmolality and hypernatremia; N17.9 Acute kidney failure, unspecified; N39.0 Urinary tract infection, site not specified; F03.90 Unspecified dementia, unspecified severity, without behavioral disturbance, psychotic disturbance, mood disturbance, and anxiety; F20.9 Schizophrenia, unspecified; I10 Essential (primary) hypertension; R94.31 Abnormal electrocardiogram [ECG] [EKG]; D64.9 Anemia, unspecified; K59.00 Constipation, unspecified; Z93.1 Gastrostomy status; Z86.73 Personal history of transient ischemic attack (TIA), and cerebral infarction without residual deficits
CPT/HCPCS: 36416; J1200; J1940; J2060; J2270; J2405